=== PATIENT | female | born 1995 | race African-American/Black ===

== ENCOUNTER 2019-01-14 14:31 | Emergency (ER) | payer OTHER ==
[~2019-01-14] VITALS: Ht 162.6 cm; Wt 59.0 kg
[2019-01-14] MEDS ORDERED: Acetaminophen 500mg (ES) tab ORAL ONE (16:15)
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
--- NOTE | 2019-01-14 16:16 | Diagnostic Imaging Report ---
Indication: Neck Pain Findings: 3 views of the cervical spine were obtained. There is no acute fracture identified. Alignment is normal. The open-mouth odontoid view shows an intact dens and good alignment of the lateral masses with respect to the body of C2. There is no soft tissue swelling. Impression: Negative cervical spine examination.
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
[2019-01-14] MEDS ORDERED: ROBAXIN500 MG PO (16:28)
[2019-01-14] MEDS ORDERED: NAPROXEN500 M2 ORAL (16:28)
[2019-01-14 16:42] VITALS: BP 120/80
== END 2019-01-14 16:43 | disposition home or self-care (01) ==
LOC: EMR 15:15
DX: S16.1XXA Strain of muscle, fascia and tendon at neck level, initial encounter (principal); S29.012A Strain of muscle and tendon of back wall of thorax, initial encounter; V43.52XA Car driver injured in collision with other type car in traffic accident, initial encounter; Y92.411 Interstate highway as the place of occurrence of the external cause
CPT/HCPCS: 72040; 99284